=== PATIENT | male | born 1940 | race Caucasian/White ===

== ENCOUNTER 2019-08-23 07:52 | Day surgery (SDC) | payer MEDICARE, OTHER, SELFPAY ==
[2019-08-23 08:36] VITALS: BP 144/75; PULSE 63; RESP 18; TEMP 36.6; O2SAT 97; BMI 26.3
[2019-08-23] MEDS: PROPARACAINE 0.5% OPHTH SOL 2 DROPS EYE-OP (08:50)
[2019-08-23] MEDS: CATARACT EYE COMPOUND (10 DROPS/SYRINGE) 3 DROPS EYE-OP ×2 (08:52→09:12)
--- NOTE | 2019-08-23 09:31 | PM.PREOP ---
Pre-operative Note Interval Note History & Physical reviewed/Exam performed by Physician: No Changes to H&P: No
--- NOTE | 2019-08-23 09:32 | PM.OP.1 ---
Operative Date/Time/Diagnoses Pre-op diagnosis: Nuclear Cataract Left eye Post-op diagnosis: same Procedure & Clinicians Same procedure as scheduled: Yes Surgeon: Alessandro Mcgregor Anesthesia Type: MAC +/- and Sedation Operative Notes Procedure in detail: Patient brought to the operating suite. Tetracaine drops placed in the left eye. Patient was prepped and draped in sterile manner. Wire lid speculum was placed in the eye. Betadine drops were placed on the eye. This was irrigated. Lidocaine jelly was placed on the eye. A paracentesis port was created with a side-port blade. 0.1 mL 1% preservative free lidocaine was injected into the anterior chamber. The anterior chamber was deepened with viscoelastic. 2.6 mm keratome was used to create a temporal clear corneal incision. Cystotome and Utrata forceps were used to create continuous tear capsulorrhexis. Balanced salt solution was used to hydro dissect the nucleus. The phacoemulsification handpiece was inserted and the nucleus was removed using the stop and chop technique. The irrigation aspiration handpiece was inserted and the remaining cortex was removed. Anterior chamber was deepened with viscoelastic. An Ragsdale ZCB00 intraocular lens with a power of 18.5 was injected into the capsular bag. Irrigation aspiration handpiece was inserted and the remaining viscoelastic was removed. Incision was hydrated with balanced salt solution and found to be leak free with pressure with Weck-Taylor sponges. 0.1 mL Vigamox injected anterior chamber. 0.3 mL Kenalog 10 mg was injected subconjunctivally. Lid speculum was removed. The patient left the operating room in excellent condition. Complications: none Post-operative Condition: stable Disposition: same day surgery
[2019-08-23] MEDS: PHENYLEPHRINE/LIDOCAINE VIAL (OR) 0.2 ML EYE-OP (09:51)
[2019-08-23] MEDS: TRIAMCINOLONE 50 MG/5 ML VIAL INJ (09:51)
[2019-08-23] MEDS: CHONDROIDTIN/SOD HYALURONATE 1.05 ML SYRINGE INTRAOCULA (09:52)
[2019-08-23] MEDS: LIDOCAINE JELLY 2% 5 ML 1 APPLIC TOP (09:52)
[2019-08-23] MEDS: MOXIFLOXACIN INJ 5 MG/ML VIAL EYE-OP (09:52)
[2019-08-23] MEDS: BALANCED SALT IRRIG SOLN NO.2 500 ML, EPINEPHrine 1 MG IRR (09:53)
[2019-08-23] MEDS: TETRACAINE 0.5% OPHTH DROPS 4 ML 2 DROPS EYE-OP (09:53)
[2019-08-23 10:01] VITALS: BP 145/80; PULSE 56; RESP 15; TEMP 36.7; O2SAT 94
== END 2019-08-23 10:18 | disposition home or self-care (01) ==
PROVIDERS: Family Provider Family Medicine; PCP Family Medicine; Referring Provider Ophthalmology; Visit Provider Ophthalmology
PROC: (CPT 66984; principal; 2019-08-23 09:45)
DX: H25.12 Age-related nuclear cataract, left eye (principal)
CPT/HCPCS: 66984; J0171; J2250; J3010; J3301

== ENCOUNTER 2019-09-06 10:49 | Day surgery (SDC) | payer MEDICARE, OTHER, SELFPAY ==
[2019-09-06 11:28] VITALS: BP 140/79; PULSE 65; RESP 16; TEMP 37; O2SAT 94
[2019-09-06 11:29] VITALS: BMI 32.1
[2019-09-06] MEDS: CATARACT EYE COMPOUND (10 DROPS/SYRINGE) 3 DROPS EYE-OP (11:34)
[2019-09-06] MEDS: PROPARACAINE 0.5% OPHTH SOL 2 DROPS EYE-OP (11:34)
--- NOTE | 2019-09-06 12:13 | PM.PREOP ---
Pre-operative Note Interval Note History & Physical reviewed/Exam performed by Physician: Yes Changes to H&P: No
--- NOTE | 2019-09-06 12:13 | PM.OP.1 ---
Operative Date/Time/Diagnoses Pre-op diagnosis: Nuclear cataract right eye Procedure & Clinicians Procedure: Cataract Surgery Same procedure as scheduled: Yes Surgeon: Alessandro Mcgregor Anesthesia Type: MAC +/- and Sedation Operative Notes Procedure in detail: Patient brought to the operating suite. Tetracaine drops placed in the right eye. Patient was prepped and draped in sterile manner. Wire lid speculum was placed in the eye. Betadine drops were placed on the eye. This was irrigated. Lidocaine jelly was placed on the eye. A paracentesis port was created with a side-port blade. 0.1 mL 1% preservative free lidocaine was injected into the anterior chamber. The anterior chamber was deepened with viscoelastic. 2.6 mm keratome was used to create a temporal clear corneal incision. Cystotome and Utrata forceps were used to create continuous tear capsulorrhexis. Balanced salt solution was used to hydro dissect the nucleus. The phacoemulsification handpiece was inserted and the nucleus was removed using the stop and chop technique. The irrigation aspiration handpiece was inserted and the remaining cortex was removed. Anterior chamber was deepened with viscoelastic. An Ragsdale ZCB00 intraocular lens with a power of 18.0 was injected into the capsular bag. Irrigation aspiration handpiece was inserted and the remaining viscoelastic was removed. Incision was hydrated with balanced salt solution and found to be leak free with pressure with Weck-Taylor sponges. 0.1 mL Vigamox injected anterior chamber. 0.3 mL Kenalog 10 mg was injected subconjunctivally. Lid speculum was removed. The patient left the operating room in excellent condition. Complications: none Post-operative Condition: stable Disposition: same day surgery
[2019-09-06] MEDS: MOXIFLOXACIN INJ 5 MG/ML VIAL EYE-OP (12:32)
[2019-09-06] MEDS: LIDOCAINE JELLY 2% 5 ML 1 APPLIC TOP (12:32)
[2019-09-06] MEDS: TRIAMCINOLONE 50 MG/5 ML VIAL INJ (12:32)
[2019-09-06] MEDS: PHENYLEPHRINE/LIDOCAINE VIAL (OR) 0.2 ML EYE-OP (12:32)
[2019-09-06] MEDS: TETRACAINE 0.5% OPHTH DROPS 4 ML 2 DROPS EYE-OP (12:33)
[2019-09-06] MEDS: BALANCED SALT IRRIG SOLN NO.2 500 ML, EPINEPHrine 1 MG IRR (12:33)
[2019-09-06] MEDS: CHONDROIDTIN/SOD HYALURONATE 1.05 ML SYRINGE INTRAOCULA (12:33)
[2019-09-06 12:48] VITALS: BP 144/80; PULSE 64; RESP 14; TEMP 36.7; O2SAT 96
== END 2019-09-06 12:59 | disposition home or self-care (01) ==
PROVIDERS: Family Provider Family Medicine; Referring Provider Ophthalmology; Visit Provider Ophthalmology
PROC: (CPT 66984; principal; 2019-09-06 12:45)
DX: H25.11 Age-related nuclear cataract, right eye (principal)
CPT/HCPCS: 66984; J0171; J2250; J3301

== ENCOUNTER → 2020-03-21 11:57 | Outpatient (CLI) | payer MEDICARE, OTHER, SELFPAY ==
--- NOTE | 2020-03-21 | DI.US.S_ITS ---
PROCEDURE: US ABDOMEN COMPLETE INDICATIONS: CYST OF PANCREAS TECHNIQUE: Real-time scanning was performed of the abdominal and retroperitoneal organs, with image documentation. COMPARISON: None. FINDINGS: This study is limited by body habitus. Liver: The liver demonstrates normal size. The liver demonstrates generalized increased echogenicity. This decreases ultrasound sensitivity for detection of hepatic masses. The left lobe of the liver is not well seen, secondary to overlying bowel gas. Gallbladder: No findings of gallstones or sludge are seen. The gallbladder wall is not thickened, measuring 3 mm or less. No specific pericholecystic fluid is seen. The sonographic Bailey sign is negative. Biliary ducts: Intrahepatic bile ducts are non-dilated. Extrahepatic bile duct caliber measures 6 mm. Normal is 6-7 mm or less in diameter, or 10 mm or less post-cholecystectomy. Pancreas: The pancreas is overall is not well seen, secondary to body habitus. There is a simple appearing cyst seen within the head of the pancreas measuring up to 3.4 cm. Spleen: Spleen is normal in size and homogeneous in echotexture. Kidneys: Kidneys are normal in size and echotexture. Right kidney measures 13.6 cm long; left kidney measures 12.9 cm long. No hydronephrosis or nephrolithiasis. No solid masses. Several simple appearing bilateral renal cysts are seen. The largest on the left is seen inferiorly measuring up to 1.2 cm. The largest on the right is seen inferiorly measuring 1.3 cm. Aorta: Visualized aorta is normal in caliber at less than 3 cm. However, the distal aorta is mildly ectatic, measuring up to 2.4 cm. Iliacs: Proximal common iliac arteries are normal in caliber at less than 2.5 cm. IVC: Intrahepatic inferior vena cava is patent. Miscellaneous: No free abdominal fluid. IMPRESSION: Poor visualization of the pancreas, yet a simple appearing 3.4 cm pancreatic head cyst can be seen. Please correlate with known prior history and prior outside imaging studies. Incidental note is made of: Simple appearing bilateral renal cysts Ectatic (yet not frankly aneurysmal) distal abdominal aortic aneurysm Fatty liver infiltration Dictated by: Barry Womack M.D. on 03/21/2020 at 16:58 Approved by: Barry Womack M.D. on 03/21/2020 at 17:02
== END ==
PROVIDERS: Family Provider Family Medicine; Referring Provider Internal Medicine; Visit Provider Internal Medicine
DX: K86.2 Cyst of pancreas (principal); N28.1 Cyst of kidney, acquired; K76.0 Fatty (change of) liver, not elsewhere classified; I77.811 Abdominal aortic ectasia
CPT/HCPCS: 76700

== ENCOUNTER → 2020-04-11 11:49 | Outpatient (CLI) | payer MEDICARE, OTHER, SELFPAY ==
--- NOTE | 2020-04-11 11:52 | DI.MRI.S_ITS ---
PROCEDURE: MR ABDOMEN WO/W CON INDICATIONS: Cyst of pancreas TECHNIQUE: Coronal HASTE, axial 2D FLASH in- and [id number]; axial breath-hold T2 FSE with fat saturation from the hepatic dome to the iliac crests. Oblique coronal thin-slice and radial thick slab HASTE through the biliary system. Dynamic axial VIBE during administration of contrast. Post-contrast coronal VIBE or 2D FLASH with fat saturation from the hepatic dome to the iliac crests. Optional diffusion weighted imaging and ADC may be performed. COMPARISON: [facility], US, US ABDOMEN COMPLETE, 03/21/2020, 13:04. FINDINGS: Image quality: Excellent. Pancreas and biliary system: Fatty atrophy of the pancreas. Large unilocular cyst in the anterior pancreatic head measuring 3.3 x 2.3 cm, (6/7). No restricted diffusion. No enhancing mural nodule. No pancreatic ductal dilatation. No main pancreatic ductal communication. No biliary ductal dilatation. Solid organs: Liver is normal in size and enhancement. No focal lesion. Gallbladder is unremarkable. Spleen is normal in size and enhancement. No adrenal nodules. Kidneys are normal in size and enhancement, without hydronephrosis. Several small T2 hyperintense peripelvic cysts. Nodes and vessels: No retroperitoneal or mesenteric adenopathy by size criteria. Mild ectasia of the infrarenal abdominal aorta measuring approximately 2.8 cm. Bowel and peritoneum: Large hiatal hernia with the entire stomach located in the thoracic cavity. Unenhanced bowel loops are normal in caliber throughout. Prominent stool in the colon. No free fluid. Lung bases: No basal pleural effusions. Heart size is normal. Bones and soft tissues: No ventral hernias. Bone marrow is normal in overall signal. IMPRESSION: 1. Large T2 hyperintense cyst in the head of the pancreas measuring 3.3 cm. No suspicious imaging features. This may represent a serous cystadenoma or IPMN, less likely mucinous cystic neoplasm. -Prior cross-sectional imaging may demonstrate long-term stability. -Recommend follow-up MRI pancreas in two years. 2. No pancreatic or biliary ductal dilatation. 3. Large hiatal hernia with the entire stomach above the diaphragmatic hiatus. Dictated by: Adrian Fabian M.D. on 04/11/2020 at 14:50 Approved by: Adrian Fabian M.D. on 04/11/2020 at 15:07
== END ==
PROVIDERS: Family Provider Family Medicine; PCP Internal Medicine; Referring Provider Internal Medicine; Visit Provider Internal Medicine
DX: K86.2 Cyst of pancreas (principal); K44.9 Diaphragmatic hernia without obstruction or gangrene
CPT/HCPCS: 74183

== ENCOUNTER → 2022-04-15 12:49 | Outpatient (CLI) | payer MEDICARE, OTHER, SELFPAY ==
--- NOTE | 2022-04-15 13:53 | DI.MRI.S_ITS ---
PROCEDURE: MR ABDOMEN WO/W CON INDICATIONS: Unspecified cirrhosis of liver TECHNIQUE: Coronal HASTE, axial 2D FLASH in- and [id number]; axial breath-hold T2 FSE with fat saturation from the hepatic dome to the iliac crests. Oblique coronal thin-slice and radial thick slab HASTE through the biliary system. Dynamic axial VIBE during administration of contrast. Post-contrast coronal VIBE or 2D FLASH with fat saturation from the hepatic dome to the iliac crests. Restricted diffusion weighted imaging and ADC may be performed. 20 cc ProHance IV contrast. COMPARISON: [facility], MR, MR ABDOMEN WO/W CON, 04/11/2020, 12:41. FINDINGS: Image quality: Excellent. Pancreas and biliary system: Cyst in the head of the pancreas measuring 2.6 cm, (3/13), previously 3.3 cm on MRI 04/11/2020. No mural nodule. No suspicious enhancement. No restricted diffusion. No pancreatic ductal dilatation. No biliary ductal dilatation. Solid organs: Liver is unchanged. Left lobe of the liver is atrophic. Right lobe is hypertrophied. No suspicious focal lesion. Gallbladder is not distended. Spleen is normal in size and enhancement. No adrenal nodules. Kidneys are normal in size and enhancement, without hydronephrosis. Nodes and vessels: No retroperitoneal or mesenteric adenopathy by size criteria. Minimal ectasia of the abdominal aorta. Bowel and peritoneum: Stomach is located below the diaphragm on this exam. Unenhanced bowel loops are normal in caliber throughout. No free fluid. Lung bases: No basal pleural effusions. Heart size is normal. Bones and soft tissues: No ventral hernias. Bone marrow is normal in overall signal. IMPRESSION: 1. Cyst in the head of the pancreas measuring 2.6 cm, is slightly decreased in size. No suspicious imaging features. This could represent a serous cystadenoma or IPMN. Recommend follow-up CT pancreas or MRI pancreas in 2 years. 2. No pancreatic or biliary ductal dilatation. Dictated by: Adrian Fabian M.D. on 04/16/2022 at 8:24 Approved by: Adrian Fabian M.D. on 04/16/2022 at 8:33
== END ==
PROVIDERS: Family Provider Family Medicine; PCP Internal Medicine; Referring Provider Surgery; Visit Provider Surgery
DX: K74.60 Unspecified cirrhosis of liver (principal); K86.2 Cyst of pancreas; R16.0 Hepatomegaly, not elsewhere classified
CPT/HCPCS: 74183; A9579